=== PATIENT | male | born 1975 | race Caucasian/White ===

== ENCOUNTER 2018-10-18 11:57 | Emergency (ER) | payer SELFPAY ==
[2018-10-18 11:58] VITALS: BP 166/94; PULSE 99; RESP 18; TEMP 36.4; O2SAT 99; BMI 25.4
[2018-10-18 12:25] VITALS: BP 170/86
--- NOTE | 2018-10-18 12:39 | ED.DCSUM_ITS ---
- ER Visit Summary Date of Service: 10/18/18 Chief Complaint: Hypertension History of Present Illness: The patient is a 43 M who states that he has had some sinus pressure as well as pain and a left upper molar that is focally decayed. He notes tenderness more in the frontal sinuses. No left maxillofacial tenderness or swelling or redness. He went to urgent care after leaving work and they noted a blood pressure elevation (204/110) advised him to come to the emergency room. He denies any chest pain shortness of breath. He recently started smoking and has been under stress. No previous history of hypertension. No headaches. Physical Examination: Afebrile vital signs are stable manual blood pressure reading of 170/86 Gen: Well-nourished well-developed Head: Normocephalic atraumatic Eyes: Perrl EOMI ENT: TMs clear no rhinorrhea moist mucous membranes turbinate edema day of left upper second molar. No focal gum swelling or pointing abscess Neck: Supple no lymphadenopathy no JVD nontender CVS: Regular rate rhythm no murmurs normal S1-S2 Respiratory: No distress clear to auscultation bilaterally chest nontender Abdomen: Soft nontender nondistended normal bowel sounds no masses Back: Nontender Extremity: Nontender no edema Skin: Normal color no rash Neuro: alert orientated ?3 CN II-XII intact normal strength sensation reflexes gait cerebellar Psych: Normal affect normal mood Emergency Department Course and Treatment: Patient will need to record his blood pressure and follow-up with primary care. We will write for Augmentin that should cover his tooth as well as possible sinusitis. Impression: 1. Hypertension 2. Sinusitis 3. Dental decay This note was generated with [employer] dictation software. It may contain incorrect words, spelling, and punctuation that were not noted in review of the chart prior to signing ED Disposition - Plan for ED Patient: Disposition: Home or Assisted Living Instructions: ED Hypertension Poss, ED Headache Sinus, ED Sinusitis Abx Tx Prescriptions: Amox/Clavulanate Tablet [Augmentin Tablet] 875 mg PO Q12H #20 tab Referrals: Hyacinth Ng [NON-STAFF] - 1-2 Weeks
[2018-10-18 12:56] VITALS: BP 156/89
== END 2018-10-18 12:57 | disposition home or self-care (01) ==
PROVIDERS: Emergency Provider Emergency Medicine
DX: I10 Essential (primary) hypertension (principal); J32.9 Chronic sinusitis, unspecified; K02.9 Dental caries, unspecified; F17.200 Nicotine dependence, unspecified, uncomplicated
CPT/HCPCS: 99282

== ENCOUNTER 2018-10-19 18:34 | Emergency (ER) | payer SELFPAY ==
[2018-10-18 11:58] VITALS: BMI 25.4
[2018-10-19 18:34] VITALS: BP 151/94; PULSE 104; RESP 18; TEMP 37; O2SAT 96; BMI 24.9
--- NOTE | 2018-10-19 19:05 | CT_ITS ---
STUDY: CT BRAIN WITHOUT CONTRAST REASON FOR EXAM: Male, 43 years old. Headache. Sinus pressure. RADIATION DOSAGE (If Supplied By Facility): CTDIvol = ( 44.99 ) mGy, DLP = ( 762.36 ) mGycm TECHNIQUE: Transaxial CT imaging of the brain was performed without administration of intravenous contrast material. Individualized dose optimization techniques were used for this CT. COMPARISON: No relevant priors. FINDINGS: Normal soft tissue structures. Normal calvarium. Normal size ventricles and extra-axial spaces for the patient's age. Normal white matter tracts of the cerebral hemispheres. Normal basal ganglia and thalami. Normal brainstem. Normal cerebellum. There is no intracranial hemorrhage. There are no findings of an acute ischemic infarction. There is mucoperiosteal inflammatory disease of the paranasal sinuses consistent with severe chronic sinusitis. CT/Brain/Head without Contrast IMPRESSION: Normal unenhanced CT scan of the brain. Severe chronic pansinusitis. Electronically Signed: Amrik Purdy MD at 19:43 EDT , Service support ,
[2018-10-19] MEDS: Ketorolac 30 MG/ML Syringe IV (19:21)
[2018-10-19] MEDS: 0.9% Normal Saline 1,000 ML 999 ML IV (19:21)
[2018-10-19] MEDS: DiphenhydrAMINE 50 MG/ML Syringe 25 MG IV (19:21)
[2018-10-19] MEDS: Metoclopramide 10 MG/2 ML Vial IV (19:21)
--- NOTE | 2018-10-19 20:51 | ED.VISSUMM ---
- ER Visit Summary Date of Service: 10/19/18 Chief Complaint: Headache, sinus infection History of Present Illness: The patient is a 43 M who was a frontal headache for the past 6 days, worse for the past 2 or 3 days. He went to urgent care and was diagnosed with sinusitis. He had 4 doses of Augmentin. He still complains of headache and some light sensitivity. He denies history of migraines. He has had congestion and is been taking Sudafed. Physical Examination: Vital signs grossly unremarkable. Patient is lying in a darkened room in no acute distress. Head neck examination reveals mildly producible tenderness of the frontal maxillary sinuses. TMs are clear bilaterally. He has moist mucous membranes. There is no meningismus. Heart is regular rate and rhythm. Lungs sounds are clear. Abdomen is soft nontender. Neuro exam is unremarkable. Test Results: CT head shows normal brain with severe pansinusitis. Emergency Department Course and Treatment: Patient was given Toradol, Reglan, Benadryl, and IV fluids. On repeat evaluation he is resting comfortably and states his headache is improved. Test results were discussed with patient and at bedside. He will continue his Augmentin. Treatment Plan: [] Disposition: Discharge Impression: 1. Cephalgia, improved 2. Sinusitis This note was generated with [employer] dictation software. It may contain incorrect words, spelling, and punctuation that were not noted in review of the chart prior to signing ED Disposition - Plan for ED Patient: Disposition: Home or Assisted Living Instructions: ED Headache Sinus Referrals: Hayden Medina MD [STAFF PHYSICIAN] - 1-2 Weeks
[2018-10-19 21:19] VITALS: PULSE 90; RESP 16
== END 2018-10-19 21:20 | disposition home or self-care (01) ==
PROVIDERS: Emergency Provider Emergency Medicine
DX: R51 Headache (principal); J32.4 Chronic pansinusitis
CPT/HCPCS: 70450; 96361; 96374; 96375; 99283; J7030; A4216

== ENCOUNTER 2021-08-06 11:28 | Emergency (ER) | payer OTHER, SELFPAY ==
[2021-08-06 11:29] VITALS: BP 147/97; PULSE 102; RESP 18; TEMP 36.5; O2SAT 100; BMI 24.5
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
--- NOTE | 2021-08-06 12:35 | RAD_ITS ---
STUDY: X-RAY - LEFT ELBOW REASON FOR EXAM: Male, 46 years old. Injury/Pain TECHNIQUE: 3 view(s) of the elbow. COMPARISON: None. FINDINGS: Normal visualized humerus, radius and ulna. Normal radiocapitellar and ulnotrochlear articulations. Elbow joint effusion. RAD/Elbow min 3 Views IMPRESSION: Joint effusion. No definite fracture is seen at this time. If symptoms persist, a repeat radiograph is recommended. Electronically Signed: Monroe Mckeon MD at 13:16 EST ,
[2021-08-06 15:27] VITALS: PULSE 81; RESP 15; O2SAT 98
== END 2021-08-06 15:29 | disposition home or self-care (01) ==
PROVIDERS: Emergency Provider Emergency Medicine; Visit Provider Emergency Medicine
DX: M25.422 Effusion, left elbow (principal); S59.902A Unspecified injury of left elbow, initial encounter; W50.0XXA Accidental hit or strike by another person, initial encounter
CPT/HCPCS: 73080; 99283

== ENCOUNTER → 2024-09-09 | Outpatient (CLI) | payer OTHER, SELFPAY ==
[2024-09-09 13:13] LABS: Anion Gap 13 (5-15); BUN 14 mg/dL (4-19); BUN/Creat Ratio 11.5 RATIO (10-20); Carbon Dioxide 26.9 mmol/L (21.0-32.0); Chloride 99 mmol/L (98-108); Cholesterol 185 mg/dL (<=200); Creatinine, Serum 1.22 mg/dL (0.70-1.20); EST Glomerular Filtration Rate 73 (>60); Glucose 104 mg/dL (70-99); High Density Lipoprotein 45 mg/dL; Low Density Lipoprotein Calc. 87 mg/dL; Potassium 4.2 mmol/L (3.3-5.1); Sodium Level 139 mmol/L (133-145); Triglycerides 263 mg/dL; Very Low Density Lipoprotein 53 mg/dL (5-40); cholesterol:hdl ratio screen 4.07
== END | disposition home or self-care (01) ==
LOC: VSLAB 10:44
PROVIDERS: PCP Nurse Practitioner Family
DX: E78.5 Hyperlipidemia, unspecified (principal); I10 Essential (primary) hypertension
CPT/HCPCS: 36415; 80048; 80061

== ENCOUNTER → 2024-11-11 | Outpatient (CLI) | payer OTHER, SELFPAY ==
[2024-11-11 11:19] LABS: Absolute Lymphocyte Count 2.12 X10^3/uL (0.83-4.51); Absolute Neutrophil Count 4.7 X10^3/uL (2.0-7.7); Basophil# 0.05 X10^3/uL; Basophil% 0.6 % (0-1); Eosinophil# 0.38 X10^3/uL; Eosinophils% 4.7 % (0-5); Hematocrit 45.8 % (40-54); Hemoglobin 15.9 g/dL (13.0-16.5); Lymphocyte # 2.12 X10^3/ul (0.83-4.51); Lymphocyte % 26.4 % (19-41); Mean Corp Hgb Conc 34.7 g/dL (32-36); Mean Corpuscular Hgb 29.2 pg (27.0-32.0); Mean Corpuscular Volume 84.2 fL (80-94); Mean Platelet Vol. 10.2 fl (6.2-12.0); Monocyte# 0.73 X10^3/uL; Monocyte% 9.1 % (0-10); NRBC Flagged by Analyzer 0 % (0-5); Neutrophil % 58.7 % (47-70); Platelet Count 264 K/mm3 (150-450); RBC Distribution Width CV 11.9 % (11.6-14.6); Red Blood Count 5.44 M/mm3 (4.6-6.2)
[2024-11-11 12:34] LABS: ALB/GLOB Ratio 1.6 RATIO (0.9-2.4); AST(SGOT) 38 U/L (<=37); Alanine Aminotransfer ALT/SGPT 83 U/L (<=46); Albumin, Serum 4.7 g/dL (3.5-5.0); Alkaline Phosphatase 106 U/L (40-129); Anion Gap 11 (5-15); BUN 15 mg/dL (4-19); Calcium,Total 10.1 mg/dL (7.6-11.0); Carbon Dioxide 27.4 mmol/L (21.0-32.0); Chloride 99 mmol/L (98-108); Creatinine, Serum 1.14 mg/dL (0.70-1.20); EST Glomerular Filtration Rate 79 (>60); Glucose 110 mg/dL (70-99); Potassium 4.2 mmol/L (3.3-5.1); Protein, Total 7.7 g/dL (5.9-8.4); Sodium Level 138 mmol/L (133-145); Total Bilirubin 0.48 mg/dL (0.00-1.30); Vitamin B12 581 pg/mL (180-914)
== END | disposition home or self-care (01) ==
LOC: LAB 09:52
PROVIDERS: PCP Nurse Practitioner Family
DX: I10 Essential (primary) hypertension (principal); E56.9 Vitamin deficiency, unspecified
CPT/HCPCS: 36415; 80053; 82306; 82607; 84443; 85025

== ENCOUNTER → 2024-12-31 | Outpatient (CLI) | payer OTHER, SELFPAY ==
--- OUTSIDE RECORDS SUMMARY | 2024-12-31 08:00 | XMS RPT_ITS | CCD ---
Author Organization [facility] Care Team Providers Care Environmental Emergencies Assistant Name Role Phone Unavailable Primary Care Provider Toña Archer LITIGATION LEGAL SECRETARY-C, Bridgette Primary Care Provider Beam LITIGATION LEGAL SECRETARY-CHomer Attending Provider Beam LITIGATION LEGAL SECRETARY-CHomer Referring Provider Beam VSCHomer Attending Unavailable ADALBERTO Beavers Primary Care Unavailabl Homer Li Attending Unavailable Homer Holguin Referring Unavailable ADALBERTO Beavers Primary Care Unavailabl e Medications Current Medications Medication Drug Class(es) Dates Sig (Normalized) Sig (Original) acetaminophen 500 mg oral tablet (2 sources) Start: 08-09-2021 take 1 tablet by mouth every six hours as needed Acetaminophen (Tylenol Extra Strength) 500 mg tablet Active 500 mg PO EVERY 6 HOURS as needed August 09, 2021 1:00am ibuprofen 600 mg oral tablet (2 sources) Nonsteroidal Anti-inflammatory Drug Start: 08-09-2021 take 1 tablet by mouth every eight hours as needed Ibuprofen 600 mg tablet Active 600 mg PO Q8H as needed August 09, 2021 1:00am Completed/Discontinued Medications Medication Drug Class(es) Dates Sig (Normalized) Sig (Original) amoxicillin 875 mg / clavulanate 125 mg oral tablet (2 sources) Penicillin-class Antibacterial Start: 10-18-2018 End: 08-09-2021 take 1 tablet by mouth every twelve hours Amoxicillin-Pot Clavulanate 875 MG tablet Discontinued 875 mg PO Q12H October 18, 2018 12:00am August 09, 2021 11:26am meloxicam 15 mg oral tablet (2 sources) Nonsteroidal Anti-inflammatory Drug Start: 08-09-2021 End: 08-19-2021 take 1 tablet by mouth once daily Meloxicam (Mobic) 15 mg tablet Discontinued 15 mg PO DAILY August 09, 2021 1:00am August 19, 2021 11:54am Do not use in conjunction with other NSAIDs including ibuprofen. Tylenol is okay Problems Problem Classification Problem Date Documented Da te Episodic/Chronic Disorders of lipid metabolism (1 source) Hyperlipidemia, unspecified; Translations: [Hyperlipidemia, unspecified] Onset: 09-21-2024 Chronic Essential hypertension (2 sources) Essential (primary) hypertension; Translations: [Essential hypertension, malignant] Onset: 05-20-2024 Chronic Other injuries and conditions due to external causes (2 sources) Injury of left elbow region; Translations: [Unspecified injury of left elbow, initial encounter] 08-14-2021 Episodic Other non-traumatic joint disorders (2 sources) Effusion of joint of left elbow; Translations: [Effusion, left elbow] 08-14-2021 Episodic Results Test Name Value Interpretation Reference Range Facility Absolute lymphocyte countOrd ered By: Homer Bob on 11-11-2024 Lymphocytes Auto (Unsp spec) [#/Vol] 2.12 10*3/uL 0.83-4.51 [facility] Absolute neutrophil countOrd ered By: jasmina Bob on 11-11-2024 Neutrophils (Bld) [#/Vol] 4.7 10*3/uL 2.0-7.7 [facility] Anion gap in Serum or Plasma Ordered By: Homer Bob on 11-11-2024 Anion gap [Moles/Vol] 11 mmol/L 5-15 [facility] Automated lymphocyte count a s percentage of total leukocytesOrdered By: Homer Bob on 11-11-2024 Lymphocytes/100 WBC Auto (Unsp spec) 26.4 % 19-41 [facility] BUN/creatinine ratioOrdered By: [facility] on 11-11-2024 Urea nitrogen/Creatinine [Mass ratio] 13.0 mg/mg 10-20 [facility] Basophil percentageOrdered B y: Homer Bob on 11-11-2024 Basophils/100 WBC (Bld) 0.6 % 0-1 [facility] Bilirubin, totalOrdered By: Homer Bob on 11-11-2024 Bilirubin [Mass/Vol] 0.48 mg/dL 0.00-1.30 [facility] CBC W/Diff, Automatedon 05-0 9-2025 Absolute Lymph 2.12 X10 3/uL Normal 0.83-4.51 [facility] Comment on above: Performed By: #### L 506.1001, L100.0100, L503.0106, L500.4050, L501.9520 #### [facility] [address] [place], [address] Absolute Neut 4.7 X10 3/uL Normal 2.0-7.7 [facility] Comment on above: Performed By: #### L 506.1001, L100.0100, L503.0106, L500.4050, L501.9520 #### [facility] [address] [place], [address] Basophils/100 WBC (Bld) 0.6 % Normal 0-1 [facility] Comment on above: Performed By: #### L 506.1001, L100.0100, L503.0106, L500.4050, L501.9520 #### [facility] [address] [place], [address] Eosinophils/100 WBC (Bld) 4.7 % Normal 0-5 [facility] Comment on above: Performed By: #### L 506.1001, L100.0100, L503.0106, L500.4050, L501.9520 #### [facility] [address] [place], [address] Erythrocyte distribution width (RBC) [Ratio] 11.9 % Normal 11.6-14.6 [facility] Comment on above: Performed By: #### L 506.1001, L100.0100, L503.0106, L500.4050, L501.9520 #### [facility] [address] [place], [address] Hematocrit (Bld) [Volume fraction] 45.8 % Normal 40-54 [facility] Comment on above: Performed By: #### L 506.1001, L100.0100, L503.0106, L500.4050, L501.9520 #### [facility] [address] [place], [address] Hemoglobin (Bld) [Mass/Vol] 15.9 g/dL Normal 13.0-16.5 [facility] Comment on above: Performed By: #### L 506.1001, L100.0100, L503.0106, L500.4050, L501.9520 #### [facility] [address] [place], [address] IG% 0.500 Normal 0.0-0.9 [facility] Comment on above: Result Comment: IG% - Immature Granulocytes (promyelocytes, myelocytes and metamyelocytes) > 1% indicates that a LEFT SHIFT is Present. Performed By: #### L 506.1001, L100.0100, L503.0106, L500.4050, L501.9520 #### [facility] [address] [place], [address] Lymphocytes/100 WBC (Bld) 26.4 % Normal 19-41 [facility] Comment on above: Performed By: #### L 506.1001, L100.0100, L503.0106, L500.4050, L501.9520 #### [facility] [address] [place], [address] MCH (RBC) [Entitic mass] 29.2 pg Normal 27.0-32.0 [facility] Comment on above: Performed By: #### L 506.1001, L100.0100, L503.0106, L500.4050, L501.9520 #### [facility] [address] [place], [address] MCHC (RBC) [Mass/Vol] 34.7 g/dL Normal 32-36 [facility] Comment on above: Performed By: #### L 506.1001, L100.0100, L503.0106, L500.4050, L501.9520 #### [facility] [address] [place], [address] MCV (RBC) [Entitic vol] 84.2 fL Normal 80-94 [facility] Comment on above: Performed By: #### L 506.1001, L100.0100, L503.0106, L500.4050, L501.9520 #### [facility] [address] [place], [address] Monocytes/100 WBC (Bld) 9.1 % Normal 0-10 [facility] Comment on above: Performed By: #### L 506.1001, L100.0100, L503.0106, L500.4050, L501.9520 #### [facility] [address] [place], [address] Neutrophils/100 WBC (Bld) 58.7 % Normal 47-70 [facility] Comment on above: Performed By: #### L 506.1001, L100.0100, L503.0106, L500.4050, L501.9520 #### [facility] [address] [place], [address] Nucleated RBC (Bld) [#/Vol] 0 10*3/uL Normal 0-5 [facility] Comment on above: Performed By: #### L 506.1001, L100.0100, L503.0106, L500.4050, L501.9520 #### [facility] [address] [place], [address] Platelet mean volume (Bld) [Entitic vol] 10.2 fL Normal 6.2-12.0 [facility] Comment on above: Performed By: #### L 506.1001, L100.0100, L503.0106, L500.4050, L501.9520 #### [facility] [address] [place], [address] Platelets (Bld) [#/Vol] 264 10*3/uL Normal 150-450 [facility] Comment on above: Performed By: #### L 506.1001, L100.0100, L503.0106, L500.4050, L501.9520 #### [facility] [address] [place], [address] RBC (Bld) [#/Vol] 5.44 10*6/uL Normal 4.6-6.2 [facility] Comment on above: Performed By: #### L 506.1001, L100.0100, L503.0106, L500.4050, L501.9520 #### [facility] [address] [place], [address] RDW SD 36.0 fl Normal 35.1-43.9 [facility] Comment on above: Performed By: #### L 506.1001, L100.0100, L503.0106, L500.4050, L501.9520 #### [facility] [address] [place], [address] WBC (Bld) [#/Vol] 8.0 10*3/uL Normal 4.4-11.0 [facility] Comment on above: Performed By: #### L 506.1001, L100.0100, L503.0106, L500.4050, L501.9520 #### [facility] [address] [place], [address] Carbon dioxide, total [Moles /volume] in Central venous bloodOrdered By: Homer Beam on 11-11-2024 CO2 [Moles/Vol] 27.4 mmol/L 21.0-32.0 [facility] Chloride assayOrdered By: Yefri Bob on 11-11-2024 Chloride [Moles/Vol] 99 mmol/L 98-108 [facility] Comprehensive Metabolic Prof ilon 11-11-2024 Albumin [Mass/Vol] 4.7 g/dL Normal 3.5-5.0 [facility] Comment on above: Performed By: #### L 506.1001, L100.0100, L503.0106, L500.4050, L501.9520 #### [facility] [address] [place], [address] Albumin/Globulin [Mass ratio] 1.6 {ratio} Normal 0.9-2.4 [facility] Comment on above: Performed By: #### L 506.1001, L100.0100, L503.0106, L500.4050, L501.9520 #### [facility] [address] [place], [address] ALK PHOS 106 U/L Normal 40-129 [facility] Comment on above: Performed By: #### L 506.1001, L100.0100, L503.0106, L500.4050, L501.9520 #### [facility] [address] [place], [address] ALT [Catalytic activity/Vol] 83 U/L High <=46 [facility] Comment on above: Performed By: #### L 506.1001, L100.0100, L503.0106, L500.4050, L501.9520 #### [facility] [address] [place], [address] AST [Catalytic activity/Vol] 38 U/L Normal <=37 [facility] Comment on above: Performed By: #### L 506.1001, L100.0100, L503.0106, L500.4050, L501.9520 #### [facility] [address] [place], [address] Bilirubin [Mass/Vol] 0.48 mg/dL Normal 0.00-1.30 [facility] Comment on above: Performed By: #### L 506.1001, L100.0100, L503.0106, L500.4050, L501.9520 #### [facility] [address] [place], [address] BUN/CRE 13.0 RATIO Normal 10-20 [facility] Comment on above: Performed By: #### L 506.1001, L100.0100, L503.0106, L500.4050, L501.9520 #### [facility] [address] [place], [address] Calcium [Mass/Vol] 10.1 mg/dL Normal 7.6-11.0 [facility] Comment on above: Performed By: #### L 506.1001, L100.0100, L503.0106, L500.4050, L501.9520 #### [facility] [address] [place], [address] Chloride [Moles/Vol] 99 mmol/L Normal 98-108 [facility] Comment on above: Performed By: #### L 506.1001, L100.0100, L503.0106, L500.4050, L501.9520 #### [facility] [address] [place], [address] CO2 [Moles/Vol] 27.4 mmol/L Normal 21.0-32.0 [facility] Comment on above: Performed By: #### L 506.1001, L100.0100, L503.0106, L500.4050, L501.9520 #### [facility] [address] [place], [address] Creatinine [Mass/Vol] 1.14 mg/dL Normal 0.70-1.20 [facility] Comment on above: Performed By: #### L 506.1001, L100.0100, L503.0106, L500.4050, L501.9520 #### [facility] [address] [place], [address] GAP 11 Normal 5-15 [facility] Comment on above: Performed By: #### L 506.1001, L100.0100, L503.0106, L500.4050, L501.9520 #### [facility] [address] [place], [address] GFR/1.73 sq M.predicted among non-blacks MDRD (S/P/Bld) [Vol rate/Area] 79 mL/min/{1.73_m2} Normal >60 [facility] Comment on above: Result Comment: mL/m in/1.73m2 CKD-EPI Creatinine Equation (2020) Performed By: #### L 506.1001, L100.0100, L503.0106, L500.4050, L501.9520 #### [facility] [address] [place], [address] Globulin (S) [Mass/Vol] 3.0 g/dL Normal 2.2-4.2 [facility] Comment on above: Performed By: #### L 506.1001, L100.0100, L503.0106, L500.4050, L501.9520 #### [facility] [address] [place], [address] Glucose [Mass/Vol] 110 mg/dL High 70-99 [facility] Comment on above: Performed By: #### L 506.1001, L100.0100, L503.0106, L500.4050, L501.9520 #### [facility] [address] [place], [address] Potassium [Moles/Vol] 4.2 mmol/L Normal 3.3-5.1 [facility] Comment on above: Performed By: #### L 506.1001, L100.0100, L503.0106, L500.4050, L501.9520 #### [facility] [address] [place], [address] Sodium [Moles/Vol] 138 mmol/L Normal 133-145 [facility] Comment on above: Performed By: #### L 506.1001, L100.0100, L503.0106, L500.4050, L501.9520 #### [facility] [address] [place], [address] T PROT 7.7 g/dL Normal 5.9-8.4 [facility] Comment on above: Performed By: #### L 506.1001, L100.0100, L503.0106, L500.4050, L501.9520 #### [facility] [address] [place], [address] Urea nitrogen [Mass/Vol] 15 mg/dL Normal 4-19 [facility] Comment on above: Performed By: #### L 506.1001, L100.0100, L503.0106, L500.4050, L501.9520 #### [facility] [address] [place], [address] Eosinophil percentageOrdered By: Homer Bob on 11-11-2024 Eosinophils/100 WBC (Bld) 4.7 % 0-5 [facility] Erythrocyte distribution wid th ratioOrdered By: [facility] on 11-11-2024 Erythrocyte distribution width (RBC) [Ratio] 11.9 % 11.6-14.6 [facility] Erythrocyte distribution wid th standard deviationOrdered By: [facility] on 11-11-2024 Erythrocyte distribution width (RBC) [Ratio] 36.0 fl 35.1-43.9 [facility] Glomerular filtration rate ( GFR) estimation/1.73 sq m using serum, plasma, or whole bOrdered By: Homer Bob on 11-11-2024 GFR/1.73 sq M.predicted among non-blacks MDRD (S/P/Bld) [Vol rate/Area] 79 mL/min/{1.73_m2} >60 [facility] Comment on above: mL/min/1.73m2 CKD-EP I Creatinine Equation (2020) Hematocrit Auto (Bld) [Volum e fraction]Ordered By: Homer Bob on 11-11-2024 Hematocrit (Bld) [Volume fraction] 45.8 % 40-54 [facility] Hemoglobin measurementOrdere d By: Homer Bob on 11-11-2024 Hemoglobin (Bld) [Mass/Vol] 15.9 g/dL 13.0-16.5 [facility] Immature granulocytes/100 WB C Auto (Bld)Ordered By: Homer Bob on 11-11-2024 Immature granulocytes/100 WBC (Bld) 0.500 % 0.0-0.9 [facility] Comment on above: IG% - Immature Granu locytes (promyelocytes, myelocytes and metamyelocytes) > 1% indicates that a LEFT SHIFT is Present. Laboratory - Chemistry and C hemistry - challengeOrdered By: Homer Bob on 11-11-2024 AST [Catalytic activity/Vol] 38 U/L <38 [facility] MCV (mean corpuscular volume ) determinationOrdered By: Homer Bob on 11-11-2024 MCV (RBC) [Entitic vol] 84.2 fL 80-94 [facility] Mean corpuscular hemoglobin (MCH) determinationOrdered By: yoliemelvin Bob on 11-11-2024 MCH (RBC) [Entitic mass] 29.2 pg 27.0-32.0 [facility] Mean corpuscular hemoglobin concentration (MCHC) determinationOrdered By: [facility] Paulino on 11-11-2024 MCHC (RBC) [Mass/Vol] 34.7 g/dL 32-36 [facility] Mean platelet volume determi nationOrdered By: Homer Bob on 11-11-2024 Platelet mean volume (Bld) [Entitic vol] 10.2 fL 6.2-12.0 [facility] Monocyte percentageOrdered B y: Homer Bob on 11-11-2024 Monocytes/100 WBC (Bld) 9.1 % 0-10 [facility] Neutrophil percentageOrdered By: Homer Bob on 11-11-2024 Neutrophils/100 WBC (Bld) 58.7 % 47-70 [facility] Nucleated red blood cell per centageOrdered By: Homer Bob on 11-11-2024 Nucleated RBC/100 WBC (Bld) [Ratio] 0 % 0-5 [facility] Platelet countOrdered By: Yefri Bob on 11-11-2024 Platelets (Bld) [#/Vol] 264 10*3/uL 150-450 [facility] Potassium measurement (mass/ volume)Ordered By: Homer Bob on 11-11-2024 Potassium (Unsp spec) [Mass/Vol] 4.2 mmol/L 3.3-5.1 [facility] RBC Auto (Bld) [#/Vol]Ordere d By: Homer Bob on 11-11-2024 RBC (Bld) [#/Vol] 5.44 10*6/uL 4.6-6.2 [facility] Serum creatinine measurement (mass/volume)Ordered By: Homer Bob on 11-11-2024 Creatinine [Mass/Vol] 1.14 mg/dL 0.70-1.20 [facility] Serum globulin measurementOr dered By: Homer Bob on 11-11-2024 Globulin (S) [Mass/Vol] 3.0 g/dL 2.2-4.2 [facility] Serum glucose measurement (m ass/volume)Ordered By: Homer Bob on 11-11-2024 Glucose [Mass/Vol] 110 mg/dL High 70-99 [facility] Serum or plasma alanine solis otransferase (ALT) measurementOrdered By: Homer Bob on 11-11-2024 ALT [Catalytic activity/Vol] 83 U/L High <47 [facility] Serum or plasma albumin tayler urement (mass/volume)Ordered By: Homer Bob on 11-11-2024 Albumin [Mass/Vol] 4.7 g/dL 3.5-5.0 [facility] Serum or plasma albumin/glob ulin mass ratioOrdered By: Shreen Beam on 11-11-2024 Albumin/Globulin [Mass ratio] 1.6 {ratio} 0.9-2.4 [facility] Serum or plasma alkaline mary sphatase measurementOrdered By: Zebulun Beam on 11-11-2024 ALP [Catalytic activity/Vol] 106 U/L 40-129 [facility] Serum or plasma calcium tayler urement (mass/volume)Ordered By: Zebulun Beam on 11-11-2024 Calcium [Mass/Vol] 10.1 mg/dL 7.6-11.0 [facility] Serum or plasma urea nitroge n measurement (mass/volume)Ordered By: Yefribulun Beam on 11-11-2024 Urea nitrogen [Mass/Vol] 15 mg/dL 4-19 [facility] Sodium levelOrdered By: Yefribu calos Beam on 11-11-2024 Sodium [Moles/Vol] 138 mmol/L 133-145 [facility] TSH DL <= 0.005 mIU/L QnOrde red By: Loralun Beam on 11-11-2024 TSH Qn 2.420 uIU/mL 0.300-4.200 [facility] Thyroid Stim Hormone (TSH)on 11-11-2024 TSH 2.420 uIU/mL Normal 0.300-4.200 [facility] Comment on above: Performed By: #### L 506.1001, L100.0100, L503.0106, L500.4050, L501.9520 #### [facility] [address] [place], [place], [id number] Total proteinOrdered By: Josiah Bob on 11-11-2024 Protein [Mass/Vol] 7.7 g/dL 5.9-8.4 [facility] Vitamin B12on 11-11-2024 Cobalamin (Vitamin B12) [Mass/Vol] 581 pg/mL Normal 180-914 [facility] Comment on above: Performed By: #### L 506.1001, L100.0100, L503.0106, L500.4050, L501.9520 #### [facility] [address] [place], [place], [address] Vitamin B12 ser/plasOrdered By: Homer Bob on 11-11-2024 Cobalamin (Vitamin B12) [Mass/Vol] 581 pg/mL 180-914 [facility] Vitamin D,25 Hydroxyon 11-11 Vitamin D 25-OH 65.0 ng/mL Normal 30-100 [facility] Comment on above: Result Comment: Penny min D Status Deficiency: <20 ng/mL (50nmol/L) Insufficiency: 20-30 ng/mL (50-75 nmol/L) Sufficiency: 30-100 ng/mL (75-250 nmol/L) Toxicity: >100 ng/mL (>250 nmol/L) Performed By: #### L 506.1001, L100.0100, L503.0106, L500.4050, L501.9520 #### [facility] [address] [place], [place], [id number] White blood cell (WBC) count Ordered By: Homer Bob on 11-11-2024 WBC (Bld) [#/Vol] 8.0 10*3/uL 4.4-11.0 [facility] Anion gap in Serum or Plasma Ordered By: Homer Bob on 09-09-2024 Anion gap [Moles/Vol] 13 mmol/L 5-15 [facility] BUN/creatinine ratioOrdered By: Homer Bob on 09-09-2024 Urea nitrogen/Creatinine [Mass ratio] 11.5 mg/mg 10- [facility] Basic Metabolic Profile (BMP )on 09-09-2024 BUN/CRE 11.5 RATIO Normal - [facility] Comment on above: Performed By: #### L 500.4100, L500.2500 #### [facility] [address] [place], [address] Calcium [Mass/Vol] 10.0 mg/dL Normal 7.6-11.0 [facility] Comment on above: Performed By: #### L 500.4100, L500.2500 #### [facility] [address] [place], [address] Chloride [Moles/Vol] 99 mmol/L Normal 98-108 [facility] Comment on above: Performed By: #### L 500.4100, L500.2500 #### [facility] [address] [place], [address] CO2 [Moles/Vol] 26.9 mmol/L Normal 21.0-32.0 [facility] Comment on above: Performed By: #### L 500.4100, L500.2500 #### [facility] [address] [place], [address] Creatinine [Mass/Vol] 1.22 mg/dL High 0.70-1.20 [facility] Comment on above: Performed By: #### L 500.4100, L500.2500 #### [facility] [address] [place], [address] GAP 13 Normal 5-15 [facility] Comment on above: Performed By: #### L 500.4100, L500.2500 #### [facility] [address] [place], [address] GFR/1.73 sq M.predicted among non-blacks MDRD (S/P/Bld) [Vol rate/Area] 73 mL/min/{1.73_m2} Normal >60 [facility] Comment on above: Result Comment: mL/m in/1.73m2 CKD-EPI Creatinine Equation (2020) Performed By: #### L 500.4100, L500.2500 #### [facility] [address] [place], [address] Glucose [Mass/Vol] 104 mg/dL High 70-99 [facility] Comment on above: Performed By: #### L 500.4100, L500.2500 #### [facility] [address] [place], [address] Potassium [Moles/Vol] 4.2 mmol/L Normal 3.3-5.1 [facility] Comment on above: Performed By: #### L 500.4100, L500.2500 #### [facility] [address] [place], [address] Sodium [Moles/Vol] 139 mmol/L Normal 133-145 [facility] Comment on above: Performed By: #### L 500.4100, L500.2500 #### [facility] [address] [place], [address] Urea nitrogen [Mass/Vol] 14 mg/dL Normal 4-19 [facility] Comment on above: Performed By: #### L 500.4100, L500.2500 #### [facility] [address] [place], [address] Calculated very low density lipoprotein (VLDL) cholesterol measurementOrdered By: Homer Bob on 09-09-2024 Calculated very low density lipoprotein (VLDL) cholesterol measurement 53 mg/dL High 5-40 [facility] VLDL Cholesterol 53 mg/dL High 5-40 [facility] Carbon dioxide, total [Moles /volume] in Central venous bloodOrdered By: Homer Bob on 09-09-2024 CO2 [Moles/Vol] 26.9 mmol/L 21.0-32.0 [facility] Chloride assayOrdered By: Yefri Bob on 09-09-2024 Chloride [Moles/Vol] 99 mmol/L 98-108 [facility] GFR/1.73 sq M.predicted dior g non-blacks MDRD (S/P/Bld) [Vol rate/Area]Ordered By: Homer Bob on 09-09-2024 Estimated GFR (MDRD) Non-Af Amer [address] >60 [facility] Comment on above: mL/min/1.73m2 CKD-EP I Creatinine Equation (2020) Glomerular filtration rate ( GFR) estimation/1.73 sq m using serum, plasma, or whole bOrdered By: Homer Bob on 09-09-2024 GFR/1.73 sq M.predicted among non-blacks MDRD (S/P/Bld) [Vol rate/Area] 73 mL/min/{1.73_m2} >60 [facility] Comment on above: mL/min/1.73m2 CKD-EP I Creatinine Equation (2020) LDL calc ser/plasOrdered By: Homer Bob on 09-09-2024 Cholesterol in LDL [Mass/Vol] 87 mg/dL [facility] Comment on above: Gptgbhpieg=372-656 m g/dL & Higher Hyfu=837 mg/dL or greater LDL Cholesterol, Calculated 87 mg/dL [facility] Comment on above: Waaetmdqfm=695-994 m g/dL & Higher Mwzq=862 mg/dL or greater Lipid Profileon 09-09-2024 CHOL:HDL 4.[address] [facility] Comment on above: Performed By: #### L 500.4100, L500.2500 #### [facility] [address] [place], [address] Cholesterol [Mass/Vol] 185 mg/dL Normal <=200 [facility] Comment on above: Result Comment: Chol esterol level, Desirable <200 mg/dL Borderline high cholesterol 200-239 mg/dL High cholesterol >=240 mg/dL Recommendations of the NCEP Adult Treatment Panel for the following risk-cutoff thresholds for the [place] population. Performed By: #### L 500.4100, L500.2500 #### [facility] [address] [place], [address] Cholesterol in HDL [Mass/Vol] 45 mg/dL Normal [facility] Comment on above: Result Comment: Aimee onal Cholesterol Education Program (NCEP) guidelines: <40 mg/dL: Low HDL-cholesterol (major risk factor for CHD) >= 60 mg/dL: High HDL-cholesterol (negative risk factor for CHD) HDL-cholesterol is affected by a number of factors, e.g. smoking, exercise, hormones, sex and age. Performed By: #### L 500.4100, L500.2500 #### [facility] [address] [place], [address] Cholesterol in LDL [Mass/Vol] 87 mg/dL Normal [facility] Comment on above: Result Comment: Bord gpiosb=568-095 mg/dL Higher Kyuw=414 mg/dL or greater Performed By: #### L 500.4100, L500.2500 #### [facility] [address] [place], [address] Cholesterol in VLDL [Mass/Vol] 53 mg/dL High 5-40 [facility] Comment on above: Performed By: #### L 500.4100, L500.2500 #### [facility] [address] [place], [address] Triglyceride [Mass/Vol] 263 mg/dL High [facility] Comment on above: Result Comment: The drugs N-Acetylcysteine and Metamizole may falsely depress this assay. Normal range: <150 mg/dL Borderline High: 150-199 mg/dL High: 200-499 mg/dL Very High: >500 mg/dL Performed By: #### L 500.4100, L500.2500 #### [facility] [address] [place], [address] Potassium (Unsp spec) [Mass/ Vol]Ordered By: Kunerangon Beam on 09-09-2024 Potassium [Moles/Vol] 4.2 mmol/L 3.3-5.1 [facility] Potassium measurement (mass/ volume)Ordered By: Zebulun Beam on 09-09-2024 Potassium (Unsp spec) [Mass/Vol] 4.2 mmol/L 3.3-5.1 [facility] Screening total cholesterol/ high density lipoprotein (HDL) cholesterol ratioOrdered By: Yefribulun Beam on 09-09-2024 Cholesterol.total/Cholest adi in HDL [Mass ratio] 4.07 {ratio} [facility] Serum creatinine measurement (mass/volume)Ordered By: [employer]un Beam on 09-09-2024 Creatinine [Mass/Vol] 1.22 mg/dL High 0.70-1.20 [facility] Serum glucose measurement (m ass/volume)Ordered By: Homer Bob on 09-09-2024 Glucose [Mass/Vol] 104 mg/dL High 70-99 [facility] Serum or plasma calcium tayler urement (mass/volume)Ordered By: Homer Bob on 09-09-2024 Calcium [Mass/Vol] 10.0 mg/dL 7.6-11.0 [facility] Serum or plasma cholesterol in HDL measurement (mass/volume)Ordered By: Homer Bob on 09-09-2024 Cholesterol in HDL [Mass/Vol] 45 mg/dL >40 [facility] Comment on above: National Cholesterol Education Program (NCEP) guidelines:<40 mg/dL: Low HDL-cholesterol (major risk factor for CHD)>= 60 mg/dL: High HDL-cholesterol (negative risk factor for CHD)HDL-cholesterol is affected by a number of factors, e.g. smoking, exercise, hormones, sex and age. Serum or plasma cholesterol measurement (mass/volume)Ordered By: Homer Bob on 09-09-2024 Cholesterol [Mass/Vol] 185 mg/dL <201 [facility] Comment on above: Cholesterol level, D esirable <200 mg/dLBorderline high cholesterol 200-239 mg/dLHigh cholesterol >=240 mg/dLRecommendations of the NCEP Adult Treatment Panel for the following risk-cutoff thresholds for the [place] population. Serum or plasma urea nitroge n measurement (mass/volume)Ordered By: Homer Bob on 09-09-2024 Urea nitrogen [Mass/Vol] 14 mg/dL 4-19 [facility] Sodium levelOrdered By: Lora Bob on 09-09-2024 Sodium [Moles/Vol] 139 mmol/L 133-145 [facility] Triglycerides measurementOrd ered By: Homer Bob on 09-09-2024 Triglyceride [Mass/Vol] 263 mg/dL High <199 [facility] Comment on above: The drugs N-Acetylcy steine and Metamizole may falsely depress this assay. Normal range: <150 mg/dLBorderline High: 150-199 mg/dLHigh: 200-499 mg/dLVery High: >500 mg/dL 25([place])D3 [facility] [place] 2023 25-hydroxyvitamin D3 [Mass/Vol] 21.9 ng/mL Low 31.0-80.0 [facility] Comment on above: Order Comment: Speci men Type: BLOOD SPECIMEN Ordering Facility: [facility] Address: [address] [place] [address], [place] [address] Performed By: #### 1 989-3 #### [facility] CLIA [id number] [address] [id number] [place] Basic metabolic 2000 panelon 05-20-2024 Anion gap [Moles/Vol] 13 mmol/L Normal 8-15 [facility] Comment on above: Order Comment: Speci men Type: BLOOD SPECIMEN Ordering Facility: [facility] Address: [address] [place] [address], [place] [address] Performed By: #### 2 4331-1, 46146-3 #### [facility] CLIA [id number] [address] [place], [place] [address] [place] Calcium [Mass/Vol] 10.2 mg/dL Normal 8.5-10.2 [facility] Comment on above: Order Comment: Speci men Type: BLOOD SPECIMEN Ordering Facility: [facility] Address: [address] [place] [address], [place] [address] Performed By: #### 2 4331-1, 46179-2 #### [facility] CLIA [id number] [address] [place], [place] [address] [place] Chloride [Moles/Vol] 102 mmol/L Normal 98-107 [facility] Comment on above: Order Comment: Speci men Type: BLOOD SPECIMEN Ordering Facility: [facility] Address: [address] [place] [address], [place] [address] Performed By: #### 2 4331-1, 59745-5 #### [facility] CLIA [id number] [address] [id number] [place] CO2 [Moles/Vol] 26 mmol/L Normal 22-30 [facility] Comment on above: Order Comment: Speci men Type: BLOOD SPECIMEN Ordering Facility: [facility] Address: [address] [place] [address], [place] [address] Performed By: #### 2 4331-1, 18246-4 #### [facility] CLIA [id number] [address] [address] [place] Creatinine [Mass/Vol] 1.12 mg/dL Normal 0.73-1.22 [facility] Comment on above: Order Comment: Speci men Type: BLOOD SPECIMEN Ordering Facility: [facility] Address: [address] [place] [address], [place] [address] Performed By: #### 2 4331-1, 99399-8 #### [facility] CLIA [id number] [address] [place] [address] [place] Creatinine and Glomerular filtration rate.predicted panel (S/P/Bld) 81 mL/min/1.73m??? Normal >=60 [facility] Comment on above: Order Comment: Speci men Type: BLOOD SPECIMEN Ordering Facility: [facility] Address: [address] [place] [address], [place] [address] Result Comment: Lillie mated Glomerular Filtration Rate (eGFR) is calculated using the 2020 CKD-EPI creatinine equation. This equation utilizes serum creatinine, sex, and age as parameters. The creatinine assay has traceable calibration to isotope dilution-mass spectrometry. Refer to KDIGO guidelines for clinical interpretation. In patients with unstable renal function, e.g. those with acute kidney injury, the eGFR may not accurately reflect actual GFR. Performed By: #### 2 4331-1, 01834-8 #### [facility] CLIA [id number] [address] [id number] [place] Glucose [Mass/Vol] 96 mg/dL Normal 74-99 [facility] Comment on above: Order Comment: Speci men Type: BLOOD SPECIMEN Ordering Facility: [facility] Address: [address] [place] [address], [place] [address] Result Comment: The [place] Diabetes Association (ADA) provides guidance for cutoff values for fasting glucose and random glucose. The ADA defines fasting as no caloric intake for at least 8 hours. Fasting plasma glucose results between 100 to 125 mg/dL indicate increased risk for diabetes (prediabetes). Fasting plasma glucose results greater than or equal to 126 mg/dL meet the criteria for diagnosis of diabetes. In the absence of unequivocal hyperglycemia, results should be confirmed by repeat testing. In a patient with classic symptoms of hyperglycemia or hyperglycemic crisis, random plasma glucose results greater than or equal to 200 mg/dL meet the criteria for diagnosis of diabetes. Reference: Standards of Medical Care in Diabetes 2016, [place] Diabetes Association. Diabetes Care. 2016.39(Suppl 1). Performed By: #### 2 4331-1, 31618-6 #### [facility] CLIA [id number] [address] [place] [address] [place] Potassium [Moles/Vol] 4.4 mmol/L Normal 3.7-5.1 [facility] Comment on above: Order Comment: Speci men Type: BLOOD SPECIMEN Ordering Facility: [facility] Address: [address] [place] [address] Performed By: #### 2 4331-1, 44911-6 #### [facility] CLIA [id number] [address] [place] [address] [place] Sodium [Moles/Vol] 141 mmol/L Normal 136-144 [facility] Comment on above: Order Comment: Speci men Type: BLOOD SPECIMEN Ordering Facility: [facility] Address: [address] [place] [address] Performed By: #### 2 4331-1, 20299-9 #### [facility] CLIA [id number] [address] [place] [address] [place] Urea nitrogen [Mass/Vol] 15 mg/dL Normal 9-24 [facility] Comment on above: Order Comment: Speci men Type: BLOOD SPECIMEN Ordering Facility: [facility] Address: [address] [place] [address] Performed By: #### 2 4331-1, 36860-6 #### [facility] CLIA [id number] [facility] [place] [address] [place] CBC W Auto Differential pane l (Bld)on 05-20-2024 Basophils (Bld) [#/Vol] 0.04 10*3/uL Normal <0.11 [facility] Comment on above: Order Comment: Speci men Type: BLOOD SPECIMEN Ordering Facility: [facility] Address: [address] [place] [address] Performed By: #### 5 7021-8 #### [facility] CLIA [id number] [address] [place] [address] [place] Basophils/100 WBC (Bld) 0.5 % Normal [facility] Comment on above: Order Comment: Speci men Type: BLOOD SPECIMEN Ordering Facility: [facility] Address: [address] [place] [address] Performed By: #### 5 7021-8 #### [facility] CLIA [id number] [address] [place] [address] [place] Differential cell count method Nom (Bld) Auto Normal [facility] Comment on above: Order Comment: Speci men Type: BLOOD SPECIMEN Ordering Facility: [facility] Address: [address] [place] [address] Performed By: #### 5 7021-8 #### [facility] CLIA [id number] [address] [place] [address] [place] Eosinophils (Bld) [#/Vol] 0.28 10*3/uL Normal <0.46 [facility] Comment on above: Order Comment: Speci men Type: BLOOD SPECIMEN Ordering Facility: [facility] Address: [address] [place] [address] Performed By: #### 5 7021-8 #### [facility] CLIA [id number] [address] [place] [address] [place] Eosinophils/100 WBC (Bld) 3.6 % Normal [facility] Comment on above: Order Comment: Speci men Type: BLOOD SPECIMEN Ordering Facility: [facility] Address: [address] [place] [address] Performed By: #### 5 7021-8 #### [facility] CLIA [id number] [address] [place] [address] [place] Erythrocyte distribution width (RBC) [Ratio] 11.8 % Normal 11.5-15.0 [facility] Comment on above: Order Comment: Speci men Type: BLOOD SPECIMEN Ordering Facility: [facility] Address: [address] [place] [address] Performed By: #### 5 7021-8 #### [facility] CLIA [id number] [address] [place] [address] [place] Hematocrit (Bld) [Volume fraction] 48.5 % Normal 39.0-51.0 [facility] Comment on above: Order Comment: Speci men Type: BLOOD SPECIMEN Ordering Facility: [facility] Address: [address] [place] [address] Performed By: #### 5 7021-8 #### [facility] CLIA [id number] [address] [place] [address] [place] Hemoglobin (Bld) [Mass/Vol] 16.3 g/dL Normal 13.0-17.0 [facility] Comment on above: Order Comment: Speci men Type: BLOOD SPECIMEN Ordering Facility: [facility] Address: [address] [place] [address] Performed By: #### 5 7021-8 #### [facility] CLIA [id number] [address] [place] [address] [place] Immature granulocytes (Bld) [#/Vol] 0.03 10*3/uL Normal <0.10 [facility] Comment on above: Order Comment: Speci men Type: BLOOD SPECIMEN Ordering Facility: [facility] Address: [address] [place] [address], [place] [address] Performed By: #### 5 7021-8 #### [facility] CLIA [id number] [address] [place] [address] [place] Immature granulocytes/100 WBC (Bld) 0.4 % Normal [facility] Comment on above: Order Comment: Speci men Type: BLOOD SPECIMEN Ordering Facility: [facility] Address: [address] [place] [address] Performed By: #### 5 7021-8 #### [facility] CLIA [id number] [address] [place] [address] [place] Lymphocytes (Bld) [#/Vol] 2.47 10*3/uL Normal 1.00-4.0 0 [facility] Comment on above: Order Comment: Speci men Type: BLOOD SPECIMEN Ordering Facility: [facility] Address: [address] [place] [address] Performed By: #### 5 7021-8 #### [facility] CLIA [id number] [address] [place] [address] [place] Lymphocytes/100 WBC (Bld) 31.4 % Normal [facility] Comment on above: Order Comment: Speci men Type: BLOOD SPECIMEN Ordering Facility: [facility] Address: [address] [place] [address] Performed By: #### 5 7021-8 #### [facility] CLIA [id number] [address] [place] [address] [place] MCH (RBC) [Entitic mass] 29.2 pg Normal 26.0-34.0 [facility] Comment on above: Order Comment: Speci men Type: BLOOD SPECIMEN Ordering Facility: [facility] Address: [address] [place] [address] Performed By: #### 5 7021-8 #### [facility] CLIA [id number] [address] [id number] [place] MCHC (RBC) [Mass/Vol] 33.6 g/dL Normal 30.5-36.0 [facility] Comment on above: Order Comment: Speci men Type: BLOOD SPECIMEN Ordering Facility: [facility] Address: [address] [place] [address] Performed By: #### 5 7021-8 #### [facility] CLIA [id number] [address] [place] [address] [place] MCV (RBC) [Entitic vol] 86.8 fL Normal 80.0-100.0 [facility] Comment on above: Order Comment: Speci men Type: BLOOD SPECIMEN Ordering Facility: [facility] Address: [address] [place] [address] Performed By: #### 5 7021-8 #### [facility] CLIA [id number] [address] [place] [address] [place] Monocytes (Bld) [#/Vol] 0.79 10*3/uL Normal <0.87 [facility] Comment on above: Order Comment: Speci men Type: BLOOD SPECIMEN Ordering Facility: [facility] Address: [address] [place] [address] Performed By: #### 5 7021-8 #### [facility] CLIA [id number] [address] [place] [address] [place] Monocytes/100 WBC (Bld) 10.0 % Normal C [facility] Comment on above: Order Comment: Speci men Type: BLOOD SPECIMEN Ordering Facility: [facility] Address: [address] [place] [address] Performed By: #### 5 7021-8 #### [facility] CLIA [id number] [facility] [address] [place] [id number] [address] [place] Neutrophils (Bld) [#/Vol] 4.26 10*3/uL Normal 1.45-7.5 0 [facility] Comment on above: Order Comment: Speci men Type: BLOOD SPECIMEN Ordering Facility: [facility] Address: [address] [place] [address] Performed By: #### 5 7021-8 #### [facility] CLIA [id number] [address] [place] [address] [place] Neutrophils/100 WBC (Bld) 54.1 % Normal [facility] Comment on above: Order Comment: Speci men Type: BLOOD SPECIMEN Ordering Facility: [facility] Address: [address] [place] [address] Performed By: #### 5 7021-8 #### [facility] CLIA [id number] [address] [place] [address] [place] Nucleated RBC (Bld) [#/Vol] 10*3/uL Normal <0.01 [facility] Comment on above: Order Comment: Speci men Type: BLOOD SPECIMEN Ordering Facility: [facility] Address: [address] [place] [address] Performed By: #### 5 7021-8 #### [facility] CLIA [id number] [address] [place] [address] [place] Nucleated RBC/100 WBC (Bld) [Ratio] 0.0 /100 WBC Normal [facility] Comment on above: Order Comment: Speci men Type: BLOOD SPECIMEN Ordering Facility: [facility] Address: [address] [place] [address] Performed By: #### 5 7021-8 #### [facility] CLIA [id number] [address] [place] [address] [place] Platelet mean volume (Bld) [Entitic vol] 10.1 fL Normal 9.0-12.7 [facility] Comment on above: Order Comment: Speci men Type: BLOOD SPECIMEN Ordering Facility: [facility] Address: [address] [place] [address], [place] [address] Performed By: #### 5 7021-8 #### [facility] CLIA [id number] [address] [place] [address] [place] Platelets (Bld) [#/Vol] 268 10*3/uL Normal 150-400 [facility] Comment on above: Order Comment: Speci men Type: BLOOD SPECIMEN Ordering Facility: [facility] Address: [address] [place] [address], [place] [address] Performed By: #### 5 7021-8 #### [facility] CLIA [id number] [address] [place] [address] [place] RBC (Bld) [#/Vol] 5.59 10*6/uL Normal 4.20-6.00 [facility] Comment on above: Order Comment: Speci men Type: BLOOD SPECIMEN Ordering Facility: [facility] Address: [address] [place] [address] Performed By: #### 5 7021-8 #### [facility] CLIA [id number] [address] [place] [address] [place] WBC (Bld) [#/Vol] 7.87 10*3/uL Normal 3.70-11.00 [facility] Comment on above: Order Comment: Speci men Type: BLOOD SPECIMEN Ordering Facility: [facility] Address: [address] [place] [address], [place] [address] Performed By: #### 5 7021-8 #### [facility] CLIA [id number] [address] [place] [address] [place] Lipid 1996 panelon 4 Cholesterol [Mass/Vol] 269 mg/dL High <200 [facility] Comment on above: Order Comment: Speci men Type: BLOOD SPECIMEN Ordering Facility: [facility] Address: [address], [place] [address] Result Comment: <200 mg/dL, Desirable 200-239 mg/dL, Borderline high >239 mg/dL, High Performed By: #### 2 4331-1, 56961-3 #### [facility] CLIA [id number] [address] [address] [place] Cholesterol in HDL [Mass/Vol] 48 mg/dL Normal >39 [facility] Comment on above: Order Comment: Damien rodriguez Type: BLOOD SPECIMEN Ordering Facility: [facility] Address: [address] [place] [address], [place] [address] Result Comment: 40-5 9 mg/dL, Acceptable >59 mg/dL, High: Negative risk factor for coronary heart disease <40 mg/dL, Low: Positive risk factor for coronary heart disease Performed By: #### 2 4331-1, 73942-4 #### [facility] CLIA [id number] [address] [address] [place] Cholesterol in LDL [Mass/Vol] 185 mg/dL High <100 [facility] Comment on above: Order Comment: Damien rodriguez Type: BLOOD SPECIMEN Ordering Facility: [facility] Address: [address] [place] [address], [place] [address] Result Comment: <100 mg/dL, Optimal 100-129 mg/dL, Near optimal/above optimal 130-159 mg/dL, Borderline high 160-189 mg/dL, High >189 mg/dL, Very high Secondary prevention optimal LDL Cholesterol levels are recommended to be < 70 mg/dL Performed By: #### 2 4331-1, 71025-6 #### [facility] CLIA [id number] [address] [address] [place] Cholesterol in LDL/Cholesterol in HDL [Mass ratio] 3.85 {ratio} High <2.54 [facility] Comment on above: Order Comment: Damien michael Type: BLOOD SPECIMEN Ordering Facility: [facility] Address: [address] [place] [address], [place] [address] Result Comment: Refe polyce: 1. National Cholesterol Education Program ATP III Guideline At-A-Glance Quick Desk Reference: National Heart, Lung, and Blood [place]. National Institutes of Health. 2001: NIH Publication No. 01-3305. 2. An International Atherosclerosis Society position paper: global recommendations for the management of dyslipidemia: executive summary, Atherosclerosis. 2014: 232(2):410-413. Performed By: #### 2 4331-1, 71735-7 #### [facility] CLIA [id number] [address] [place] [address] [place] Cholesterol in VLDL [Mass/Vol] 36 mg/dL High <30 [facility] Comment on above: Order Comment: Speci men Type: BLOOD SPECIMEN Ordering Facility: [facility] Address: [address] [place] [address], [place] [address] Performed By: #### 2 433-1, 31915-0 #### [facility] CLIA [id number] [address] [place] [address] [place] Cholesterol non HDL [Mass/Vol] 221 mg/dL High <130 [facility] Comment on above: Order Comment: Damien rodriguez Type: BLOOD SPECIMEN Ordering Facility: [facility] Address: [address] [place] [address], [place] [address] Result Comment: <130 mg/dL, Optimal 130-159 mg/dL, Near optimal/above optimal 160-189 mg/dL, Borderline high 190-219 mg/dL, High >219 mg/dL, Very high Secondary prevention optimal non HDL Cholesterol levels are recommended to be <100 mg/dL Performed By: #### 2 433-1, 34556-5 #### [facility] CLIA [id number] [address] [place] [address] [place] Cholesterol.total/Cholest adi in HDL [Mass ratio] 5.60 {ratio} High <5.10 [facility] Comment on above: Order Comment: Damien rodriguez Type: BLOOD SPECIMEN Ordering Facility: [facility] Address: [address] [place] [address], [place] [address] Performed By: #### 2 4331-1, 49750-5 #### [facility] CLIA [id number] [address] [place] [address] [place] FASTING TIME 12 hrs Normal [facility] Comment on above: Order Comment: Speci men Type: BLOOD SPECIMEN Ordering Facility: [facility] Address: [address] [place] [address], [place] [address] Performed By: #### 2 4331-1, 80899-1 #### [facility] CLIA [id number] [address] [place] [address] [place] Triglyceride [Mass/Vol] 182 mg/dL High <150 [facility] Comment on above: Order Comment: Speci men Type: BLOOD SPECIMEN [facility] [facility] Address[facility] [address] [place] [address], [place] [address] Result Comment: <150 mg/dL, Normal 150-199 mg/dL, Borderline high 200-499 mg/dL, High >499 mg/dL, Very high Performed By: #### 2 4331-1, 88988-5 #### [facility] CLIA [id number] [address] [place] [address] [place] TSH SerPl-aCncon 05-20-2024 TSH Qn 1.010 m[IU]/L Normal 0.270-4.200 [facility] Comment on above: Order Comment: Speci men Type: BLOOD SPECIMEN Ordering Facility: [facility] Address: [address] [place] [address], [place] [address] Performed By: #### 3 016-3 #### [facility] CLIA [id number] [address] [place] [address] [place] XR Elbow - left AP and Later al and obliqueon 08-01-2021 IMPRESSION: Left elbow joint effusion. Photographic Machine Operator: [email or web address] Transcribe Date/Time: Aug 01 2021 8:24A Dictated by : Paul ARBOLEDA MD This examination was interpreted and the report reviewed and electronically signed by: Paul ARBOLEDA MD on Aug 01 2021 8:38AM [facility] DIVISION OF RADIOLOGY * * *Final Report* * * DATE OF EXAM: Aug 01 2021 8:21AM WOX 5324 - XR ELBOW 3V AP/LAT/OTHER LT / PROCEDURE REASON: Elbow pain, left * * * * Physician Interpretation * * * * EXAM: XR ELBOW 3V AP/LAT/OTHER LT HISTORY: Elbow pain, left. Lateral left elbow pain x3 days, denies injury. VIEWS: 3V left elbow. COMPARISON: No relevant comparison. FINDINGS: Patient unable to straighten the left elbow for optimal AP view. No dislocation, acute fracture or focal lesion. Joint spaces appear maintained. Joint effusion with displaced fat pads. DIVISION OF RADIOLOGY Provider, [facility] [place] - 08/01/2021 * * *Final Report* * * DATE OF EXAM: Aug 01 2021 8:21AM WOX 5324 - XR ELBOW 3V AP/LAT/OTHER LT / PROCEDURE REASON: Elbow pain, left * * * * Physician Interpretation * * * * EXAM: XR ELBOW 3V AP/LAT/OTHER LT HISTORY: Elbow pain, left. Lateral left elbow pain x3 days, denies injury. VIEWS: 3V left elbow. COMPARISON: No relevant comparison. FINDINGS: Patient unable to straighten the left elbow for optimal AP view. No dislocation, acute fracture or focal lesion. Joint spaces appear maintained. Joint effusion with displaced fat pads. IMPRESSION IMPRESSION: Left elbow joint effusion. Photographic Machine Operator: [email or web address] Transcribe Date/Time: Aug 01 2021 8:24A Dictated by : Paul ARBOLEDA MD This examination was interpreted and the report reviewed and electronically signed by: Paul ARBOLEDA MD on Aug 01 2021 8:38AM EST [facility] Rad[facility]narrative[facility] - left AP and Later al and obliqueOrdered By: [facility] Provider on 08-01-2021 [facility] Encounters Encounter Date Encounter Type Care Provider Facility Start: 11-11-2024 End: 11-11-2024 ambulatory Bridgette Archer LITIGATION LEGAL SECRETARY-C Work Phone: [facility] Work Phone: Start: 11-11-2024 End: 11-11-2024 Patient encounter procedure Homer Bob LITIGATION LEGAL SECRETARY-C -Laboratory Work Phone: Start: 11-11-2024 End: 11-11-2024 ambulatory Zebulun Beam VS Facility:[facility] Start: 09-09-2024 End: 09-09-2024 ambulatory Bridgette SANTA Work Phone: [facility] Work Phone: Start: 09-09-2024 End: 09-09-2024 [facility] -[facility], [facility]ac[facility] Berenice Start: 09-09-2024 End: 09-09-2024 ambulatory Zebulun Beam [facility] Facility:[facility] Start: 05-20-2024 End: 05-20-2024 ambulatory Facility:[facility] Start: 08-01-2021 End: 08-01-2021 Subsequent hospital visit by physician Xr [facility] Work Phone: Radiology Comment on above: Elbow pain, left [M2 5.522] Procedures Date Procedure Procedure Detail Performing Clinician Start: 11-11-2024 Vitamin D, 25-hydrox y measurement Bridgette SANTA Work Phone: Comment on above: Vitamin D StatusDefi ciency: <20 ng/mL (50nmol/L)Insufficiency: 20-30 ng/mL (50-75 nmol/L)Sufficiency: 30-100 ng/mL (75-250 nmol/L)Toxicity: >100 ng/mL (>250 nmol/L) Start: 08-01-2021 Radex elbow complete minimum 3 views Hernesto Duarte APRN.CNP Work Phone: Plan of Treatment Date Care Activity Detail Author Start: 05-06-2026 Diabetes Screening Diabetes Screenin g [facility] Start: 03-06-2024 Covid-19 Vaccine ( season) Covid-19 Vaccine ( season) [facility] Start: 03-06-2024 Influenza vaccination Influenza Vacc ine (#1) [facility] Start: 2021 Screening for malign ant neoplasm of colon [facility] Start: 2011 Lipid panel Lipid Screening [facility] Start: 1995 Hepatitis B Vaccine (1 of 3 - 19+ 3-dose series) Hepatitis B Vaccine (1 of 3 - 19+ 3-dose series) [facility] Start: 1995 Urine microalbumin profile DTa P,Tdap,Td Vaccine (1 - Tdap) [facility] Start: 1994 Anxiety Screening Anxiety Screening [facility] Start: 1994 Depression Screening Depression Scre ening [facility] Start: 1994 Hepatitis C screening Hepatitis C Sc reening [facility] Start: 1994 HIV screening HIV Screening [facility] Payers Date Payer Category Payer Self-pay [id number] 2024 Unknown [id number] 2021 Unknown [employer] PPO OOS [id number] 2021-2022 [id number] [place] [address] PPO [id number] Private Health Insurance [facility] [id number] Unknown [facility] [id number] Unknown [id number] Unknown [id number] Social History Date Type Detail Facility Start: 08-01-2021 Tobacco smoking stat us NCIS Ex-smoker [facility] History of tobacco use Current smoker [facility] Start: 08-01-2021 Tobacco use and exposure Smokeless tobacco non-user [facility] Start: 08-01-2021 History of Social function [facility] Start: 08-01-2021 Tobacco use panel [facility] Start: 1975 Sex assigned at Not on file [facility] Start: 07-02-2021 End: 08-01-2021 Exposure to SARS-CoV-2 (event) Not sure [facility] Start: 08-19-2021 Tobacco smoking stat us NHIS Never smoked tobacco (finding) [facility] Start: 09-21-2024 Sex Male (finding) [facility] Start: 1975 Sex Assigned At Male [facility] History of Present illness Narrative 08-01-2021 Jerri Mittal RT(R) - 08/01/2021 8:10 AM EST Note Date & Type Note Facility 08-01-2021 History of Presen t illness Narrative Radiology Service Progress Note PATIENT NAME: Kiesha Campbell DATE OF SERVICE: August 01, 2021 TIME: 8:09 AM PATIENT IDENTITY VERIFICATION COMPLETED USING TWO (2) IDENTIFIERS: Name and Date of confirmed by patient verbally. FALL SCREENING: Has the patient had 2 falls in the last year or 1 fall with injury or currently using an Ambulatory Assistive Device (Walker, Cane, Wheelchair, Crutches, etc.)? No PATIENT GENDER DATA: Male PATIENT RELEVANT IMPLANT DATA REVIEWED: Not Applicable RADIOLOGY DEPARTMENT: General X-ray: Exam(s) Completed: Upper Extremity X-Ray(s): Elbow, left PERIPHERAL IV DATA: Not applicable SIGNED BY: RT Aristides(R) August 01, 2021 8:09 AM documented in this encounter [facility] Evaluation note Note Date & Type Note Facility Evaluation note No assessment information availa marleny [facility] Work Phone: Reason for referral (narrative) Note Date & Type Note Facility Reason for referral (narrative) No reason for referral information available [facility] Work Phone: Reason for visit Narrative Diagnostic Procedure Only (Urgent) - Closed Note Date & Type Note Facility Reason for visit Narrative Specialty Diagnoses / Procedures Referred By Amina t Referred To Contact XR IMAGING Diagnoses Elbow pain, left Procedures XR ELBOW SPECIAL VIEWS AP/LAT/OTHER LEFT RADEX ELBOW COMPLETE MINIMUM 3 VIEWS Hernesto Duarte APRN.[employer] [address] [place] [address] [place] [address] Referral ID Status Reason Start Date Expiration Date V isits Requested Visits Authorized [id number] Closed Auto-Generate d Referral 08/01/2021 08/31/2022 1 1 [facility] Summary Purpose Family History No Family History Records FoundNo Family History Records Found Advance Directives No Advanced Directives Records FoundNo Advanced Directives Records Found Additional Source Comments Source Comments (unrecognize d section and content) In the event this informatio n is protected by the Federal Confidentiality of Alcohol and Drug Abuse Patient Records regulations: The Federal rules restrict any use of the information to criminally investigate or prosecute any alcohol or drug abuse patient.[facility] (unrecognized sect ion and content) No Status Records FoundNo Status Records Found INFORMATION SOURCE (unrecogn ized section and content) DATE CREATED AUTHOR 05/23/2024 [facility] DATE CREATED AUTHOR AUTHOR'S ROBERT WASHINGTON 11/16/2024 [facility] Care Teams (unrecognized sec tion and content) Team Status: Active Member Role Status Dates No Primary Care Physician Family Provider Active Bridgette GLOVER LITIGATION LEGAL SECRETARY-C Primary Care Provider Activ e Team Status: Inactive Member Role Status Dates Bridgette GLOVER LITIGATION LEGAL SECRETARY-C Primary Care Provider Activ e Start: September 09, 2024 End: September 09, 2024 Yefribucalos Bob VSAbiodun, LITIGATION LEGAL SECRETARY-C Attending Provider Active Start: September 09, 2024 End: September 09, 2024 Team Status: Inactive Member Role Status Dates Bridgette GLOVER LITIGATION LEGAL SECRETARY-C Primary Care Provider Activ e Start: November 11, 2024 End: November 11, 2024 Yefribulumelvin Beam VSC, LITIGATION LEGAL SECRETARY-C Attending Provider Active Start: November 11, 2024 End: November 11, 2024 YefriKIET Green Referring Provider Active Start: November 11, 2024 End: November 11, 2024 Goals (unrecognized section and content) Goals may be documented in a n alternate sectionGoals may be documented in an alternate section FOR RECORDS PERTAINING TO PATIENTS WHO ARE OR HAVE BEEN ENROLLED IN A CHEMICAL DEPENDENCY/SUBSTANCEABUSE PROGRAM, SOME INFORMATION MAY BE OMITTED. This clinical summary was aggregated from multiple sources. Caution should be exercised in using it in the provision of clinical care. This summary normalizes information from multiple sources, and as a consequence, information in this document may materially change the coding, format and clinical context of patient data. In addition, data may be omitted in some cases. CLINICAL DECISIONS SHOULD BE BASED ON THE PRIMARY CLINICAL RECORDS. [employer] provides no warranty or guarantee of the accuracy or completeness of information in this document.
== END | disposition home or self-care (01) ==
PROVIDERS: PCP Nurse Practitioner Family; Referring Provider Nurse Practitioner Family; Visit Provider Nurse Practitioner Family
DX: R53.83 Other fatigue (principal)
CPT/HCPCS: 36415; 84402; 84403

== ENCOUNTER → 2025-03-01 | Outpatient (CLI) | payer OTHER, SELFPAY | END | disposition home or self-care (01) | LOC: SL 15:38 | PROVIDERS: PCP Nurse Practitioner Family; Referring Provider Nurse Practitioner Family; Visit Provider Nurse Practitioner Family | DX: G47.10 Hypersomnia, unspecified (principal) | CPT/HCPCS: 95806 ==